=== PATIENT | male | born 1965 | race African-American/Black ===

== ENCOUNTER 2019-11-06 22:55 | Emergency (ER) | payer OTHER, MEDICAID ==
[~2019-11-06] VITALS: Ht 172.7 cm; Wt 90.0 kg
[2019-11-07] MEDS ORDERED: SODIUM CHLORIDE 0.9% 1,000 ML IV ONE (00:15)
[2019-11-07] MEDS ORDERED: MORPHINE SULFATE 4 MG/ML CPJ (NOT FOR IM USE) IV STA (00:15)
[2019-11-07] MEDS ORDERED: ONDANSETRON HCL 4MG/2ML INJ IV STA (00:15)
[2019-11-07] MEDS ORDERED: METOCLOPRAMIDE HCL 10MG/2ML VIAL IV ONE (00:15)
[2019-11-07] MEDS ORDERED: DIPHENHYDRAMINE 50MG/ML VIAL IV ONE (00:15)
[2019-11-07 00:55] LABS: HEMATOCRIT. 38.8 % (42.0-52.0); HEMOGLOBIN. 13.3 g/dL (14.0-18.0); MEAN CORPUSCULAR HEMOGLOBIN 33.7 pg (28.0-32.0); MEAN CORPUSCULAR VOLUME 98.7 fL (80.0-94.0); MEAN PLATELET VOLUME 8.3 fl (7.4-10.4); PLATELET 271 x1000/uL (130-400); RED BLOOD CELL COUNT 3.93 mill/uL (4.7-6.1); RED CELL DISTRIBUTION WIDTH 12.9 % (11.6-14.6)
[2019-11-07 01:02] LABS: CHLORIDE 103 mEq/L (98-107)
[2019-11-07] MEDS ORDERED: IOHEXOL-350 100 ML BOTTLE ONE (02:11)
[2019-11-07 04:46] LABS: PLATELET ESTIMATE NORMAL
[2019-11-07 06:02] VITALS: BP 155/83
== END 2019-11-07 06:03 | disposition home or self-care (01) ==
LOC: ER 22:55
DX: R51 Headache (principal); F12.10 Cannabis abuse, uncomplicated; I10 Essential (primary) hypertension; Z91.018 Allergy to other foods
CPT/HCPCS: 36415; 70496; 71045; 80053; 85025; 96374; 96375; 99284; J1200; J2270; J2405; J2765; J7030; Q9967; Z7610

== ENCOUNTER 2020-01-26 18:47 | Emergency (ER) | payer OTHER, MEDICAID ==
[~2020-01-26] VITALS: Ht 172.7 cm; Wt 90.0 kg
[2020-01-26 19:42] VITALS: BP 183/118
== END 2020-01-26 22:14 | disposition left against medical advice (07) ==
LOC: ER 18:47
DX: R03.1 Nonspecific low blood-pressure reading (principal); Z53.21 Procedure and treatment not carried out due to patient leaving prior to being seen by health care provider